=== PATIENT | male | born 1950 | race Caucasian/White ===

== ENCOUNTER 2019-02-11 10:03 | Day surgery (SDC) | payer OTHER ==
[~2019-02-11] VITALS: Ht 177.8 cm; Wt 81.6 kg
[~2019-02-11 10:03] MED LIST: ATORVASTATIN CA80 MG PO; BACITRACIN 50,000 UNIT in IV NORMAL SALINE 500ML BAG 500 ML IRR ONE; BUPIVACAINE-EPI 0.5%-1:200000 MPF 30 ML VIAL. INJ ONE; CETI10TA22 PO; CHLORHEXIDINE 0.12% 15 ML MOUTHWASH. SWSP ONE; CYAN-25 PO; DABI150C PO; DILT360C PO; EMPA10TA PO; GLIP5TAB10 PO; GUAI400T63 PO; HYDROmorphone 2 MG/ML VIAL IV PRN; INSU100V8 SQ; IV RINGERS,LACTATED 1000ML 1,000 ML IV SCH; LIDOCAINE 1% PF 2 ML VIAL. ID PRN; LORA1TAB PO; LOSA-73 PO; MELA3TAB56 PO; METF10007 PO; MORPHINE SULFATE 2 MG/ML VIAL. IV PRN; OLOD4MIS2 IH; ONDANSETRON PF 4 MG/2 ML VIAL. IV PRN; PROCHLORPERAZINE 10 MG/2 ML VIAL. IV PRN; VENTOLIN HFA18 GM INH; fentaNYL PF VIAL 100 MCG/2 ML VIAL IV PRN
[2019-02-11] MEDS ORDERED: GELATIN SPONGE SIZE 100. ONE (10:27)
[2019-02-11] MEDS ORDERED: CHLORHEXIDINE 0.12% 15 ML MOUTHWASH. ONE (10:27)
[2019-02-11] MEDS ORDERED: ASPI81TA50 PO (10:29)
[2019-02-11] MEDS ORDERED: INSULIN LISPRO 100 UNIT/ML 3ML VIAL for OP,RR ONLY. SQ PRN (10:30)
[2019-02-11] MEDS ORDERED: ROCURONIUM 50 MG/5 ML VIAL. ONE (11:50)
[2019-02-11] MEDS ORDERED: fentaNYL PF VIAL 100 MCG/2 ML VIAL ONE (11:50)
[2019-02-11] MEDS ORDERED: GELATIN SPONGE SIZE 12-7MM SPONGE. ONE ×2 (11:59→12:00)
[2019-02-11] MEDS ORDERED: GELATIN SPONGE SIZE 4 SPONGE. ONE (11:59)
[2019-02-11] MEDS ORDERED: LIDOCAINE 2% PF 5 ML VIAL. ONE (12:12)
[2019-02-11] MEDS ORDERED: ONDANSETRON PF 4 MG/2 ML VIAL. ONE (12:12)
[2019-02-11] MEDS ORDERED: DEXAMETHASONE SOD PHOS 4 MG/ML VIAL ONE (12:12)
[2019-02-11] MEDS ORDERED: PROPOFOL 20 ML IV ONE (12:12)
[2019-02-11] MEDS ORDERED: GLYCOPYRROLATE 1 MG/5 ML VIAL. ONE (12:40)
[2019-02-11] MEDS ORDERED: NEOSTIGMINE METHYLSULFATE 5 MG/5 ML SYRINGE. ONE (12:40)
--- NOTE | 2019-02-11 13:12 | PDOC4 ---
OPERATIVE NOTE Date: Date: Feb 11, 2019 Pre-Op Diagnosis: COPD Caries, non restorable teeth # 20, 21, 22, 27, 28 Bilateral mandibular jamshid Post-Op Diagnosis: same Procedure Performed: surgical extraction of Carious, non restorable teeth # 20, 21, 22, 27, 28 removal of Bilateral mandibular jamshid Lower right and left alveoloplasty Surgeon: tomás Anesthesia Type: hopgood Blood Loss: 10 Specimans Obtained: teeth disposed of in OR Findings: see dictation Complications: none Operative Note: see dictation SHERRIE AGUILAR DMD Feb 11, 2019 13:12
[2019-02-11 13:34] VITALS: BP 131/49
--- NOTE | 2019-02-11 16:47 | OP ---
DATE OF SURGERY: 02/11/2019 PREOPERATIVE DIAGNOSES: 1. Chronic obstructive pulmonary disease with exacerbation. 2. Carious nonrestorable teeth 20, 21, 22, 27, 28. 3. Bilateral mandibular jamshid. POSTOPERATIVE DIAGNOSES: 1. Chronic obstructive pulmonary disease with exacerbation. 2. Carious nonrestorable teeth 20, 21, 22, 27, 28. 3. Bilateral mandibular jamshid. PROCEDURES PERFORMED: 1. General anesthetic. 2. Surgical removal of teeth numbers 20, 21, 22, 27, 28; alveoloplasty of lower right and lower left quadrants and surgical removal of bilateral mandibular jamshid. ATTENDING PHYSICIAN: Sudhir Aguilar DMD OPERATING SERVICE: gear nicker. BRIEF HISTORY: The patient was referred to our clinic by the [facility] for removal of these teeth. His COPD was extremely severe and we did not feel safe sedating him in our clinic. He was in pain at that setting of care, due to his anxiety we switched this and it was determined to be the OR in the hospital. A history and physical permit was performed and obtained in our clinic. DRAINS PLACED: None. SPECIMEN SENT: None. Teeth were disposed in OR. COMPLICATIONS: None noted at the time of surgery. ESTIMATED BLOOD LOSS: Approximately 10 mL. OPERATIVE DESCRIPTION: After the history and physical was updated in the preoperative holding area, the patient was transported by the Anesthesia Service to the operating suite, placed in the supine position. General anesthesia was induced and nasal GERHARD intubation was performed in the right naris and secured with traditional oral maxillofacial surgery head turban wrap. Care was taken to keep the tube off the ala of the nose. A timeout was initiated by surgical staff, all perioperative staff was in agreeance. Moistened throat pack was placed. The oral cavity was lavaged and suctioned. The patient was prepped and draped in normal sterile fashion. Local anesthesia in the form of 0.5% Marcaine and 1:200,000 epinephrine was administered. A total of approximately 20 mL followed by an additional 10 mL were administered at the culmination of the procedure for a total of 30 mL of local anesthesia performed as local blocks and infiltrations for the patient comfort. A 15 blade was employed to make a full-thickness mucoperiosteal flap in the lower right and lower left quadrants. These were reflected both buccally and lingually over the jamshid. Teeth numbers 20, 21, 22, 27, 28 were luxated, elevated, and extracted with forceps and instruments. An alveoloplasty was performed with rongeur forceps, smoothed with a bone file, and the extraction sites were curetted with surgical curettage. Rotary instrumentation was also utilized to smooth the bony alveolus. The full-thickness mucoperiosteal flap was extended lingually over the jamshid and these were removed with rotary instrumentation with copious normal sterile saline irrigation. These were assessed for smoothness with digital manipulation. This was culmination of the procedure. The extraction sites and lingual jamshid sites were lavaged with copious normal sterile saline and the extraction sites were packed with Gelfoam and oversewn with 3-0 chromic gut sutures in a running locked fashion. These sites were found to be hemostatic. Oral cavity was then lavaged and suctioned. A moistened throat pack was removed. An OG was passed. The stomach was decompressed and the patient was then returned to the care of Anesthesia, where he was awakened and extubated without complication and transported to the PACU in stable condition. SUDHIR AGUILAR DMD DR: Terell JOB#: [id number] / [id number]
== END 2019-02-11 14:15 | disposition home or self-care (01) ==
LOC: SURG 10:03
PROVIDERS: ATTEND Dentist Oral and Maxillofacial Surgery
DX: K02.9 Dental caries, unspecified (principal); J44.9 Chronic obstructive pulmonary disease, unspecified; F41.9 Anxiety disorder, unspecified; I10 Essential (primary) hypertension; E11.9 Type 2 diabetes mellitus without complications; F31.9 Bipolar disorder, unspecified; Z98.890 Other specified postprocedural states; Z79.84 Long term (current) use of oral hypoglycemic drugs; Z88.6 Allergy status to analgesic agent; Z91.048 Other nonmedicinal substance allergy status; Z88.8 Allergy status to other drugs, medicaments and biological substances; Z79.899 Other long term (current) drug therapy; Z79.4 Long term (current) use of insulin; Z88.1 Allergy status to other antibiotic agents
CPT/HCPCS: 21031; 41874; 82962; A7015; J0690; J1100; J2001; J2405; J2704; J2710; J3010; J3490; J7040; J7120